=== PATIENT | male | born 1950 | race Two or more races ===

== ENCOUNTER 2024-08-24 22:53 | Inpatient (IN) | payer MEDICARE, OTHER ==
[~2024-08-24] VITALS: Ht 170.2 cm; Wt 57.6 kg
[2024-08-24 23:40] LABS: BASOPHILS # (AUTO) 0.1 K/UL (0.0-0.2); BASOPHILS % (AUTO) 0.4 % (0.0-2.0); HEMATOCRIT 26.1 % (36.7-47.1); HEMOGLOBIN 8.2 g/dL (12.5-16.3); LYMPHOCYTES # (AUTO) 1.1 K/uL (0.8-4.8); LYMPHOCYTES % (AUTO) 8.9 % (20.5-51.5); MEAN CORPUSCULAR HEMOGLOBIN 26.7 uug (23.8-33.4); MEAN CORPUSCULAR HGB CONC 31 g/dL (32.5-36.3); MEAN CORPUSCULAR VOLUME 85.3 fL (73.0-96.2); MONOCYTES % (AUTO) 7.4 % (0.0-11.0); NEUTROPHILS # (AUTO) 10.7 K/uL (1.8-8.9); NEUTROPHILS % (AUTO) 83.3 % (38.5-71.5); PLATELET COUNT (AUTO) 375 K/uL (152-348); RED BLOOD CELL COUNT(AUTO) 3.06 MIL/uL (4.06-5.63); RED CELL DISTRIBUTION WIDTH 18.2 % (12.1-16.2); WHITE BLOOD COUNT (AUTO) 12.9 K/uL (3.6-10.2)
[2024-08-25 00:09] LABS: ABG BASE EXCESS -4.4 mmol/L (-2.0-3.0); ABG HCO3 20.9 mmol/L (21.0-28.0); ABG PCO2 39.1 mmHg (35.0-48.0); ABG PH 7.345 (7.350-7.450); ABG PO2 81.4 mmHg (83.0-108.0); ABG SITE LEFT BRACHIAL; ABG TOTAL HEMOGLOBIN 8.8 G/dL (13.5-17.5); AaDO2 95.5 mmHg; COHb 0.3 % (0.5-1.5); MetHb 0.4 % (0.0-1.5); O2Hb 94.2 % (94.0-98.0)
[2024-08-25 00:20] LABS: ALANINE AMINOTRANSFERASE 24 U/L (16-63); ALBUMIN 2.1 g/dL (3.4-5.0); ALKALINE PHOSPHATASE 103 U/L (50-136); ASPARTATE AMINOTRANSFERASE 29 U/L (15-37); BILIRUBIN,DIRECT 0.1 mg/dL (0.0-0.2); BILIRUBIN,TOTAL 0.2 mg/dL (0.2-1.0); CALCIUM 8.8 mg/dL (8.5-10.1); CARBON DIOXIDE 25 mmol/L (21-32); CHLORIDE 105 mmol/L (98-107); CREATININE 1.6 mg/dL (0.6-1.3); GLUCOSE 278 mg/dL (74-106); NT-PRO BNP 49835 pg/mL (0-125); POTASSIUM 4.5 mmol/L (3.5-5.1); SODIUM SERUM 140 mmol/L (136-145); TOTAL PROTEIN, SERUM 7.8 g/dL (6.4-8.2); UREA NITROGEN, BLOOD 47 mg/dL (7-18)
[2024-08-25] MEDS ORDERED: FUROSEMIDE 40 MG/4 ML VIAL ONE ×2 (00:48→23:01)
[2024-08-25] MEDS ORDERED: NITROGLYCERIN OINT 1 GM PACKET TP ONE (00:49)
[2024-08-25] MEDS: NITROGLYCERIN OINT 1 GM PACKET TP ONE (00:50)
[2024-08-25] MEDS: FUROSEMIDE 40 MG/4 ML VIAL IV ONE (00:50)
[2024-08-25] MEDS ORDERED: SITA100T PO (01:13)
[2024-08-25] MEDS ORDERED: CLON0.1T PO (01:13)
[2024-08-25] MEDS ORDERED: ASPI-1420 PO (01:13)
[2024-08-25] MEDS ORDERED: CARV3.122 PO (01:13)
[2024-08-25] MEDS ORDERED: DONE5TAB34 PO (01:13)
[2024-08-25] MEDS ORDERED: FURO40TA5 PO (01:13)
[2024-08-25] MEDS ORDERED: OLME1TAB88 PO (01:13)
[2024-08-25] MEDS ORDERED: FINA5TAB11 PO (01:13)
[2024-08-25] MEDS ORDERED: DULA0.75 SQ (01:13)
[2024-08-25] MEDS ORDERED: ICOS1CAP PO (01:13)
[2024-08-25] MEDS ORDERED: FERR325T6 PO (01:13)
[2024-08-25] MEDS ORDERED: ERGO500040 PO (01:13)
[2024-08-25] MEDS ORDERED: LINA145C PO (01:13)
[2024-08-25] MEDS ORDERED: INSU100I34 SQ (01:13)
[2024-08-25] MEDS ORDERED: OLME40TA18 PO (01:13)
[2024-08-25] MEDS ORDERED: ROSU20TA32 PO (01:13)
[2024-08-25 01:32] LABS: LACTIC ACID 2.1 mmol/L (0.4-2.0)
[2024-08-25] MEDS ORDERED: ACETAMINOPHEN 325 MG TABLET PO PRN (04:45)
[2024-08-25] MEDS ORDERED: REMEDY ESSENTIAL ZINC PASTE 113 GM TP PRN (04:45)
[2024-08-25] MEDS ORDERED: MAGNESIUM HYDROXIDE 30 ML LIQUID UDC PO PRN (04:45)
[2024-08-25] MEDS ORDERED: ONDANSETRON 4 MG/2 ML VIAL IV PRN (04:45)
[2024-08-25] MEDS: hydrALAZINE HCL 20 MG/1 ML VIAL IV ONE ×2 (05:15→08:05)
[2024-08-25] MEDS ORDERED: hydrALAZINE HCL 20 MG/1 ML VIAL ONE ×2 (05:29→08:03)
[2024-08-25] MEDS: AZITHROMYCIN IV 500 MG in IV DEXTROSE 5% 250 ML IV SCH (05:30)
[2024-08-25] MEDS: CEFTRIAXONE 1 G in IV DEXTROSE 5% 50 ML IV SCH (05:30)
[2024-08-25 05:31] LABS: *BILIRUBIN,URIN NEGATIVE (NEGATIVE); *BLOOD, URINE 1+ (NEGATIVE); *CLARITY,URINE CLEAR (CLEAR); *COLOR,URINE YELLOW (YELLOW); *KETONES,URINE NEGATIVE (NEGATIVE); *UROBILINOGEN,URINE 0.2 E.U./dl (NORMAL); LEUKOCYTE ESTERASE ,URINE NEGATIVE (NEGATIVE); NITRITE, URINE NEGATIVE (NEGATIVE); PH,URINE 5.5 (5.0-8.0); UGLUCOSE TRACE (NEGATIVE)
[2024-08-25 05:36] LABS: *PROTEIN,URINE 3+ (NEGATIVE)
[2024-08-25] MEDS ORDERED: CEFTRIAXONE 1 G VIAL ONE (05:39)
[2024-08-25 05:40] LABS: BACTERIA,URINE FEW /HPF (NONE SEEN); WBC,URINE 0-3 /HPF (0-3)
[2024-08-25] MEDS ORDERED: AZITHROMYCIN 500MG/ D5W 250ML IVPB **ER PYXIS ONLY IV ONE (05:40)
[2024-08-25 05:41] LABS: SQUAMOUS EPITHELIAL CELL,UR FEW /HPF (NONE SEEN); WAXY CASTS,URINE 0-3 /LPF (NONE SEEN); YEAST,URINE FEW /HPF (NONE SEEN)
[2024-08-25 05:42] LABS: RED BLOOD CELL CASTS,URINE 0-3 /LPF (NONE SEEN)
[2024-08-25] MEDS ORDERED: DEXTROSE 50% 50 ML DISP.SYRIN IV PRN (06:15)
[2024-08-25 07:32] LABS: BASOPHILS # (AUTO) 0.1 K/UL (0.0-0.2); BASOPHILS % (AUTO) 0.8 % (0.0-2.0); EOSINOPHILS % (AUTO) 0.1 % (0.0-7.0); HEMATOCRIT 23.6 % (36.7-47.1); HEMOGLOBIN 7.7 g/dL (12.5-16.3); LYMPHOCYTES # (AUTO) 1.2 K/uL (0.8-4.8); LYMPHOCYTES % (AUTO) 10.1 % (20.5-51.5); MEAN CORPUSCULAR HEMOGLOBIN 27.1 uug (23.8-33.4); MEAN CORPUSCULAR HGB CONC 33 g/dL (32.5-36.3); MEAN CORPUSCULAR VOLUME 82.8 fL (73.0-96.2); MONOCYTES # (AUTO) 1.2 K/uL (0.1-1.30); MONOCYTES % (AUTO) 10.2 % (0.0-11.0); NEUTROPHILS # (AUTO) 9.6 K/uL (1.8-8.9); NEUTROPHILS % (AUTO) 78.8 % (38.5-71.5); PLATELET COUNT (AUTO) 314 K/uL (152-348); RED BLOOD CELL COUNT(AUTO) 2.85 MIL/uL (4.06-5.63); RED CELL DISTRIBUTION WIDTH 18.1 % (12.1-16.2); WHITE BLOOD COUNT (AUTO) 12.2 K/uL (3.6-10.2)
[2024-08-25 07:37] LABS: DIFFERENTIAL COMMENT 1
[2024-08-25 07:45] LABS: CALCIUM 8.7 mg/dL (8.5-10.1); CARBON DIOXIDE 23 mmol/L (21-32); CHLORIDE 105 mmol/L (98-107); CREATININE 1.4 mg/dL (0.6-1.3); GLUCOSE 287 mg/dL (74-106); MAGNESIUM 1.7 mg/dL (1.8-2.4); PHOSPHOROUS 4.3 mg/dL (2.5-4.9); POTASSIUM 3.8 mmol/L (3.5-5.1); SODIUM SERUM 140 mmol/L (136-145); UREA NITROGEN, BLOOD 45 mg/dL (7-18)
[2024-08-25 07:52] LABS: IRON, SERUM 19 ug/dL (50-175)
[2024-08-25] MEDS ORDERED: Medication Not On Formulary EA (Olmesartan Medoxomil 1 TAB) PO SCH (09:00)
[2024-08-25] MEDS ORDERED: Icosapent Ethyl (Vascepa) 1 CAP) PO SCH (09:00)
[2024-08-25] MEDS ORDERED: Linaclotide (Linzess) 1 CAP) PO SCH (09:00)
[2024-08-25] MEDS: BLOOD SUGAR DIAGNOSTIC 1 EACH STRIP VI SCH (09:08)
[2024-08-25] MEDS ORDERED: INSULIN REGULAR, HUMAN 1000 UNIT/10 ML VIAL ONE (09:19)
[2024-08-25] MEDS ORDERED: FUROSEMIDE 40 MG TABLET ONE (10:02)
[2024-08-25] MEDS ORDERED: ASPIRIN EC 81 MG TABLET.DR PO ONE (10:02)
[2024-08-25] MEDS ORDERED: PANTOPRAZOLE SODIUM 40 MG VIAL ONE (10:02)
[2024-08-25] MEDS ORDERED: CARVEDILOL 3.125 MG TABLET ONE ×2 (10:02→22:42)
[2024-08-25] MEDS ORDERED: DONEPEZIL 5 MG TABLET ONE (10:02)
[2024-08-25] MEDS: FUROSEMIDE 40 MG TABLET PO SCH (10:03)
[2024-08-25] MEDS: ASPIRIN EC 81 MG TABLET.DR PO SCH (10:03)
[2024-08-25] MEDS: DONEPEZIL 5 MG TABLET PO SCH (10:04)
[2024-08-25] MEDS: CARVEDILOL 3.125 MG TABLET PO SCH ×2 (10:04→21:00)
[2024-08-25] MEDS: PANTOPRAZOLE SODIUM 40 MG VIAL IV SCH (10:04)
[2024-08-25] MEDS ORDERED: ACETAMINOPHEN 325 MG TABLET ONE (10:40)
[2024-08-25] MEDS ORDERED: FINASTERIDE 5 MG TABLET ONE (10:40)
[2024-08-25] MEDS: FINASTERIDE 5 MG TABLET PO SCH (10:43)
[2024-08-25] MEDS: INSULIN REGULAR, HUMAN 1000 UNIT/10 ML VIAL SQ PRN (12:23)
[2024-08-25] MEDS ORDERED: ENOXAPARIN SODIUM 60 MG/0.6 ML DISP.SYRIN SQ ONE ×2 (15:02→23:02)
[2024-08-25] MEDS ORDERED: MAGNESIUM OXIDE 400 MG TABLET ONE (15:02)
[2024-08-25] MEDS: ENOXAPARIN SODIUM 60 MG/0.6 ML DISP.SYRIN SQ SCH (15:03)
[2024-08-25] MEDS: MAGNESIUM OXIDE 400 MG TABLET PO ONE (15:03)
[2024-08-25 16:45] VITALS: O2SAT 97
[2024-08-25] MEDS ORDERED: Medication Not On Formulary EA (Rosuvastatin Calcium 1 TAB) PO SCH (18:00)
[2024-08-25] MEDS: DOXYCYCLINE HYCLATE IV 100 MG in IV DEXTROSE 5% 100 ML IV SCH (21:00)
[2024-08-25] MEDS: ATORVASTATIN 40 MG TABLET PO SCH (21:00)
[2024-08-25] MEDS: FUROSEMIDE 40 MG/4 ML VIAL IV SCH (21:00)
[2024-08-26] VITALS (8 sets, daily range): BP systolic 143–184; BP diastolic 58–80; TEMP 96.9–98.8; O2SAT 95–100
[2024-08-26] MEDS: CLONIDINE HCL 0.1 MG TABLET PO PRN (01:06)
[2024-08-26 07:23] LABS: BASOPHILS # (AUTO) 0.1 K/UL (0.0-0.2); BASOPHILS % (AUTO) 0.7 % (0.0-2.0); EOSINOPHILS % (AUTO) 0.4 % (0.0-7.0); HEMATOCRIT 23.1 % (36.7-47.1); HEMOGLOBIN 7.7 g/dL (12.5-16.3); LYMPHOCYTES # (AUTO) 1.1 K/uL (0.8-4.8); LYMPHOCYTES % (AUTO) 11.7 % (20.5-51.5); MEAN CORPUSCULAR HEMOGLOBIN 27.4 uug (23.8-33.4); MEAN CORPUSCULAR HGB CONC 33 g/dL (32.5-36.3); MEAN CORPUSCULAR VOLUME 82.7 fL (73.0-96.2); MONOCYTES % (AUTO) 10.6 % (0.0-11.0); NEUTROPHILS % (AUTO) 76.6 % (38.5-71.5); PLATELET COUNT (AUTO) 278 K/uL (152-348); RED BLOOD CELL COUNT(AUTO) 2.79 MIL/uL (4.06-5.63); RED CELL DISTRIBUTION WIDTH 18.2 % (12.1-16.2); WHITE BLOOD COUNT (AUTO) 9.2 K/uL (3.6-10.2)
[2024-08-26 07:41] LABS: DIFFERENTIAL COMMENT 1
[2024-08-26 08:00] LABS: ALANINE AMINOTRANSFERASE 16 U/L (16-63); ALBUMIN 1.6 g/dL (3.4-5.0); ALKALINE PHOSPHATASE 81 U/L (50-136); ASPARTATE AMINOTRANSFERASE 16 U/L (15-37); BILIRUBIN,TOTAL 0.2 mg/dL (0.2-1.0); CALCIUM 8.4 mg/dL (8.5-10.1); CARBON DIOXIDE 27 mmol/L (21-32); CHLORIDE 107 mmol/L (98-107); CHOLESTEROL 146 mg/dL (<200); CREATININE 1.3 mg/dL (0.6-1.3); GLUCOSE 202 mg/dL (74-106); HDL CHOLESTEROL 39 mg/dL (40-60); POTASSIUM 3.4 mmol/L (3.5-5.1); SODIUM SERUM 141 mmol/L (136-145); TOTAL PROTEIN, SERUM 6.5 g/dL (6.4-8.2); TRIGLYCERIDES 147 MG/DL (30-150); UREA NITROGEN, BLOOD 41 mg/dL (7-18)
[2024-08-26 08:01] LABS: IRON, SERUM 12 ug/dL (50-175)
[2024-08-26] MEDS: LOSARTAN POTASSIUM 50 MG TABLET PO SCH (08:21)
[2024-08-26] MEDS: LINAGLIPTIN 5 MG TABLET PO SCH (08:21)
[2024-08-26] MEDS: FERROUS SULFATE 325 MG TABEC PO SCH (08:21)
[2024-08-26 08:41] LABS: MAGNESIUM 1.7 mg/dL (1.8-2.4); PHOSPHOROUS 3.5 mg/dL (2.5-4.9)
[2024-08-26 08:53] LABS: THYROID STIMULATING HORMONE 2.324 mIU/mL (0.358-3.740)
[2024-08-26] MEDS: AMLODIPINE 5 MG TABLET PO SCH (12:32)
[2024-08-26] MEDS: POTASSIUM CHLORIDE 20 MEQ TAB.PRT.SR PO ONE (14:21)
[2024-08-26] MEDS: MAGNESIUM OXIDE 400 MG TABLET PO ONE (14:21)
[2024-08-27] VITALS (8 sets, daily range): BP systolic 114–175; BP diastolic 54–70; TEMP 98.1–98.8; O2SAT 95–99
[2024-08-27 06:46] LABS: BASOPHILS # (AUTO) 0.1 K/UL (0.0-0.2); BASOPHILS % (AUTO) 0.9 % (0.0-2.0); EOSINOPHILS # (AUTO) 0.2 K/uL (0.0-0.7); EOSINOPHILS % (AUTO) 2.3 % (0.0-7.0); LYMPHOCYTES # (AUTO) 1.5 K/uL (0.8-4.8); LYMPHOCYTES % (AUTO) 18.8 % (20.5-51.5); MEAN CORPUSCULAR HEMOGLOBIN 27.8 uug (23.8-33.4); MEAN CORPUSCULAR HGB CONC 34 g/dL (32.5-36.3); MEAN CORPUSCULAR VOLUME 82.6 fL (73.0-96.2); MONOCYTES # (AUTO) 0.9 K/uL (0.1-1.30); MONOCYTES % (AUTO) 11.9 % (0.0-11.0); NEUTROPHILS # (AUTO) 5.2 K/uL (1.8-8.9); NEUTROPHILS % (AUTO) 66.1 % (38.5-71.5); PLATELET COUNT (AUTO) 276 K/uL (152-348); RED BLOOD CELL COUNT(AUTO) 2.66 MIL/uL (4.06-5.63); RED CELL DISTRIBUTION WIDTH 18.2 % (12.1-16.2); WHITE BLOOD COUNT (AUTO) 7.9 K/uL (3.6-10.2)
[2024-08-27 06:52] LABS: CALCIUM 8.3 mg/dL (8.5-10.1); CARBON DIOXIDE 28 mmol/L (21-32); CHLORIDE 108 mmol/L (98-107); CREATININE 1.3 mg/dL (0.6-1.3); GLUCOSE 138 mg/dL (74-106); MAGNESIUM 1.6 mg/dL (1.8-2.4); POTASSIUM 3.8 mmol/L (3.5-5.1); SODIUM SERUM 143 mmol/L (136-145); UREA NITROGEN, BLOOD 43 mg/dL (7-18)
[2024-08-27 06:55] LABS: DIFFERENTIAL COMMENT 1; HEMOGLOBIN 7.4 g/dL (12.5-16.3)
[2024-08-27] MEDS: ASPIRIN EC 325 MG TABLET.DR PO SCH (08:29)
[2024-08-27] MEDS: DOXYCYCLINE HYCLATE 100 MG TABLET PO SCH (08:29)
[2024-08-27] MEDS ORDERED: ASPIRIN EC 81 MG TABLET.DR PO SCH (09:00)
[2024-08-27] MEDS: MAGNESIUM OXIDE 400 MG TABLET PO ONE ×2 (10:03→14:41)
[2024-08-27] MEDS: IPRATROPIUM BROMIDE 0.5 MG/2.5 ML NEBU NEB PRN (11:04)
[2024-08-27] MEDS: ALBUTEROL SULFATE 2.5 MG/3 ML NEBU NEB PRN (11:04)
[2024-08-27] MEDS: GLUCERNA SHAKE 237 ML CAN PO SCH (17:52)
[2024-08-27] MEDS: CARVEDILOL 6.25 MG TABLET PO SCH (17:53)
[2024-08-27] MEDS: hydrALAZINE HCL 25 MG TABLET PO SCH (17:54)
[2024-08-28] VITALS (12 sets, daily range): BP systolic 108–155; BP diastolic 49–76; TEMP 97–98.5; O2SAT 93–98
[2024-08-28] MEDS: PANTOPRAZOLE SODIUM 40 MG TABLET.DR PO SCH (06:01)
[2024-08-28 07:35] LABS: BASOPHILS # (AUTO) 0.1 K/UL (0.0-0.2); BASOPHILS % (AUTO) 1.1 % (0.0-2.0); EOSINOPHILS # (AUTO) 0.2 K/uL (0.0-0.7); EOSINOPHILS % (AUTO) 3.3 % (0.0-7.0); HEMATOCRIT 21.4 % (36.7-47.1); LYMPHOCYTES # (AUTO) 1.2 K/uL (0.8-4.8); LYMPHOCYTES % (AUTO) 18.4 % (20.5-51.5); MEAN CORPUSCULAR HEMOGLOBIN 27.7 uug (23.8-33.4); MEAN CORPUSCULAR HGB CONC 33 g/dL (32.5-36.3); MEAN CORPUSCULAR VOLUME 82.9 fL (73.0-96.2); MONOCYTES # (AUTO) 0.6 K/uL (0.1-1.30); MONOCYTES % (AUTO) 9.6 % (0.0-11.0); NEUTROPHILS # (AUTO) 4.5 K/uL (1.8-8.9); NEUTROPHILS % (AUTO) 67.6 % (38.5-71.5); PLATELET COUNT (AUTO) 261 K/uL (152-348); RED BLOOD CELL COUNT(AUTO) 2.58 MIL/uL (4.06-5.63); RED CELL DISTRIBUTION WIDTH 18.2 % (12.1-16.2); WHITE BLOOD COUNT (AUTO) 6.7 K/uL (3.6-10.2)
[2024-08-28 07:38] LABS: DIFFERENTIAL COMMENT 1; HEMOGLOBIN 7.1 g/dL (12.5-16.3)
[2024-08-28 07:48] LABS: CALCIUM 8.2 mg/dL (8.5-10.1); CARBON DIOXIDE 29 mmol/L (21-32); CHLORIDE 106 mmol/L (98-107); CREATININE 1.2 mg/dL (0.6-1.3); GLUCOSE 131 mg/dL (74-106); POTASSIUM 3.8 mmol/L (3.5-5.1); SODIUM SERUM 141 mmol/L (136-145); UREA NITROGEN, BLOOD 42 mg/dL (7-18)
[2024-08-28 08:19] LABS: MAGNESIUM 1.8 mg/dL (1.8-2.4); PHOSPHOROUS 3.9 mg/dL (2.5-4.9)
[2024-08-28] MEDS: ERGOCALCIFEROL 50,000 UNIT CAPSULE PO SCH (08:54)
[2024-08-28] MEDS: CEphaleXIN 500 MG CAPSULE PO SCH (20:44)
[2024-08-29] VITALS (8 sets, daily range): BP systolic 121–171; BP diastolic 54–67; TEMP 96.9–98.4; O2SAT 94–98
[2024-08-29 07:48] LABS: BASOPHILS % (AUTO) 0.7 % (0.0-2.0); EOSINOPHILS # (AUTO) 0.2 K/uL (0.0-0.7); EOSINOPHILS % (AUTO) 3.3 % (0.0-7.0); HEMATOCRIT 24.9 % (36.7-47.1); HEMOGLOBIN 8.3 g/dL (12.5-16.3); LYMPHOCYTES # (AUTO) 1.1 K/uL (0.8-4.8); LYMPHOCYTES % (AUTO) 17.8 % (20.5-51.5); MEAN CORPUSCULAR HGB CONC 33 g/dL (32.5-36.3); MEAN CORPUSCULAR VOLUME 83.9 fL (73.0-96.2); MONOCYTES # (AUTO) 0.7 K/uL (0.1-1.30); MONOCYTES % (AUTO) 10.9 % (0.0-11.0); NEUTROPHILS # (AUTO) 4.2 K/uL (1.8-8.9); NEUTROPHILS % (AUTO) 67.3 % (38.5-71.5); PLATELET COUNT (AUTO) 277 K/uL (152-348); RED BLOOD CELL COUNT(AUTO) 2.97 MIL/uL (4.06-5.63); RED CELL DISTRIBUTION WIDTH 17.5 % (12.1-16.2); WHITE BLOOD COUNT (AUTO) 6.2 K/uL (3.6-10.2)
[2024-08-29 07:56] LABS: CALCIUM 8.2 mg/dL (8.5-10.1); CARBON DIOXIDE 29 mmol/L (21-32); CHLORIDE 106 mmol/L (98-107); CREATININE 1.2 mg/dL (0.6-1.3); GLUCOSE 189 mg/dL (74-106); POTASSIUM 3.6 mmol/L (3.5-5.1); SODIUM SERUM 143 mmol/L (136-145); UREA NITROGEN, BLOOD 39 mg/dL (7-18)
[2024-08-29 07:57] LABS: DIFFERENTIAL COMMENT 1
[2024-08-29 08:59] LABS: MAGNESIUM 1.8 mg/dL (1.8-2.4); PHOSPHOROUS 3.8 mg/dL (2.5-4.9)
[2024-08-29 09:00] LABS: C-REACTIVE PROTEIN 5.82 mg/dL (0.00-0.30)
[2024-08-29] MEDS: hydrALAZINE HCL 50 MG TABLET PO SCH (13:10)
[2024-08-29] MEDS ORDERED: hydrALAZINE HCL 25 MG TABLET PO SCH (14:00)
[2024-08-29] MEDS ORDERED: PANT40TA49 PO ×2 (14:14→17:55)
[2024-08-29] MEDS ORDERED: ASPI-610 PO (14:14)
[2024-08-29] MEDS ORDERED: DOXY100T2 PO (14:14)
[2024-08-29] MEDS ORDERED: CEPH500C2 PO ×2 (14:14→17:55)
[2024-08-29] MEDS ORDERED: CARV6.252 PO (14:14)
[2024-08-29] MEDS ORDERED: AMLO-212 PO (14:14)
[2024-08-29] MEDS ORDERED: ICOS1CAP PO (17:55)
[2024-08-29] MEDS ORDERED: FURO-151 PO (17:55)
[2024-08-29] MEDS ORDERED: DULA0.75 SQ (17:55)
[2024-08-29] MEDS ORDERED: HYDR50TA68 PO (17:55)
[2024-08-29] MEDS ORDERED: LINA5TAB PO (17:55)
[2024-08-29] MEDS ORDERED: LINA145C PO (17:55)
[2024-08-29] MEDS ORDERED: SITA100T PO (17:55)
[2024-08-29] MEDS ORDERED: DONE5TAB34 PO (17:55)
[2024-08-29] MEDS ORDERED: AMLO5TAB4 PO (17:55)
[2024-08-29] MEDS ORDERED: ATOR40TA PO (17:55)
[2024-08-29] MEDS ORDERED: CARV6.25 PO (17:55)
[2024-08-29] MEDS ORDERED: ASPI-612 PO (17:55)
[2024-08-29] MEDS ORDERED: OLME40TA18 PO (17:55)
[2024-08-29] MEDS ORDERED: DOXY-326 PO (17:55)
[2024-08-29] MEDS ORDERED: LOSA50TA3 PO (17:55)
[2024-08-29] MEDS ORDERED: ROSU20TA2 PO (17:55)
== END 2024-08-29 19:30 | disposition home or self-care (01) | DRG 280 ==
LOC: ER 22:53 → TRANSITION 08-25 10:31 → TELE3 08-25 23:39
PROC: 5A09457 Assistance with Respiratory Ventilation, 24-96 Consecutive Hours, Continuous Positive Airway Pressure (ICD-10-PCS; principal; 2024-08-25)
PROC: 30233N1 Transfusion of Nonautologous Red Blood Cells into Peripheral Vein, Percutaneous Approach (ICD-10-PCS; 2024-08-28)
DX: I11.0 Hypertensive heart disease with heart failure (principal); I50.41 Acute combined systolic (congestive) and diastolic (congestive) heart failure; I21.A1 Myocardial infarction type 2; J96.01 Acute respiratory failure with hypoxia; J15.9 Unspecified bacterial pneumonia; E44.0 Moderate protein-calorie malnutrition; Z68.1 Body mass index [BMI] 19.9 or less, adult; N17.9 Acute kidney failure, unspecified; E87.20 Acidosis, unspecified; E78.5 Hyperlipidemia, unspecified; I13.0 Hypertensive heart and chronic kidney disease with heart failure and stage 1 through stage 4 chronic kidney disease, or unspecified chronic kidney disease; I16.0 Hypertensive urgency; Z90.79 Acquired absence of other genital organ(s); N18.9 Chronic kidney disease, unspecified; E83.42 Hypomagnesemia; E88.09 Other disorders of plasma-protein metabolism, not elsewhere classified; Z79.899 Other long term (current) drug therapy; Z79.84 Long term (current) use of oral hypoglycemic drugs; Z85.46 Personal history of malignant neoplasm of prostate; Z85.49 Personal history of malignant neoplasm of other male genital organs; Z79.82 Long term (current) use of aspirin; Z87.891 Personal history of nicotine dependence; R62.7 Adult failure to thrive; E11.22 Type 2 diabetes mellitus with diabetic chronic kidney disease; E11.51 Type 2 diabetes mellitus with diabetic peripheral angiopathy without gangrene; D50.0 Iron deficiency anemia secondary to blood loss (chronic); D63.8 Anemia in other chronic diseases classified elsewhere; F03.90 Unspecified dementia, unspecified severity, without behavioral disturbance, psychotic disturbance, mood disturbance, and anxiety
CPT/HCPCS: 32555; 36415; 36600; 71045; 76604; 76770; 82803; 83550; 83605; 83735; 84100; 84443; 84484; 85025; 85730; 86140; 86850; 86900; 86901; 86920; 87040; 93307; 94660; 94664; 94760; A4606; G0378; J0360; J0456; J0696; J1650; J1815; J1940; J2470; J3490; J3590; J7040; P9016